=== PATIENT | female | born 1945 | race Caucasian/White ===

== ENCOUNTER → 2016-10-16 | Outpatient (CLI) | payer MEDICARE ==
[~2016-10-16] VITALS: Ht 167.6 cm; Wt 72.1 kg
[~2016-10-16] MED LIST: ALEV220T26 PO; CALCCAP12 PO; CALCTAB93; LIDOCAINE 2% INJ 100 MG/5 ML SDV (FOR ANES.) As Ordered ONE; NS 1,000 ML IV SCH; OMEP10CASR PO; PROPOFOL 200 MG/20 ML VIAL As Ordered ONE
--- NOTE | 2016-10-16 09:39 | ROOR ---
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 Procedure: Pre-Anesthesia Assessment: - The heart rate, respiratory rate, oxygen saturations, blood pressure, adequacy of pulmonary ventilation, and response to care were monitored throughout the procedure. The Endoscope was introduced through the mouth, and advanced to the second part of duodenum. The upper GI endoscopy was accomplished without difficulty. The patient tolerated the procedure well. Findings: A tattoo was seen in the second portion of the duodenum. A post-polypectomy scar was found at the tattoo site. There was no evidence of residual polyp tissue. This was biopsied with a cold forceps for histology. The exam was otherwise without abnormality. Impression: - A tattoo was seen in the duodenum. A post-polypectomy scar was found at the tattoo site. There was no evidence of residual polyp tissue. Biopsied. - The examination was otherwise normal. Recommendation: - Await pathology results. - Repeat upper endoscopy in 1 year for surveillance based on pathology results. Lamonte Cortez MD Lamonte CORTEZ MD 10/16/2016 9:39:03 AM This report has been signed electronically. Number of Addenda: 0 Note Initiated On: 10/16/2016 9:22 AM Estimated Blood Loss: Estimated blood loss: none.
[2016-10-16 09:55] VITALS: BP 168/84
== END | disposition home or self-care (01) ==
LOC: M OPP 07:10
PROVIDERS: ATTEND Internal Medicine Gastroenterology
DX: R12 Heartburn (principal); Z85.72 Personal history of non-Hodgkin lymphomas; Z79.1 Long term (current) use of non-steroidal anti-inflammatories (NSAID); Z79.899 Other long term (current) drug therapy

== ENCOUNTER → 2017-04-09 | Outpatient (CLI) | payer MEDICARE ==
[~2017-04-09] MED LIST changes: -CALCCAP12 PO; +CALCCAP2 PO; -LIDOCAINE 2% INJ 100 MG/5 ML SDV (FOR ANES.) As Ordered ONE; -NS 1,000 ML IV SCH; -PROPOFOL 200 MG/20 ML VIAL As Ordered ONE
--- NOTE | 2017-04-09 09:09 | REPMRS ---
Patient History The patient states she has not had a clinical breast exam in over a year. Patient is postmenopausal, has history of lymphoma at age 68, and had previous chemotherapy at age 68. No known family history of cancer. Digital Woman Screen Mammo: April 09, 2017 - Exam #: [id number] Bilateral CC and MLO view(s) were taken. Technologist: Sharon Stanley, Technologist Prior study comparison: March 23, 2014, digital woman screen mammo performed at [facility]. August 21, 2011, left breast digital mammo diagnostic unilateral, performed at [facility]. July 27, 2011, bilateral bilat screen digital mammo performed at [facility]. FINDINGS: The breast tissue is heterogeneously dense. This may lower the sensitivity of mammography. There is a stable nodular opacity laterally in the left breast unchanged from 2011. There is a moderate amount of heterogeneously dense fibroglandular tissue which is fairly symmetric. There is no interval development of dominant mass, architectural distortion, or clustered microcalcification typical of malignancy. There has been no change in the appearance of the mammogram from the prior studies. ASSESSMENT: BI-RADS/ACR category 2 mammogram. Benign finding(s). Recommendation Routine screening mammogram of both breasts in 1 year (for women over age 40). This mammogram was interpreted with the aid of an FDA-approved computer-aided dectection system. Electronically Signed By: Dwight Sharma MD 04/09/17 [id number]
== END ==
LOC: M WHC 08:05
PROVIDERS: ATTEND Internal Medicine Medical Oncology
DX: Z12.31 Encounter for screening mammogram for malignant neoplasm of breast (principal)

== ENCOUNTER 2017-08-20 15:21 | Emergency (ER) | payer MEDICARE ==
[~2017-08-20] VITALS: Ht 167.6 cm; Wt 70.9 kg
[2017-08-20 18:31] VITALS: BP 149/84
== END 2017-08-20 18:32 | disposition home or self-care (01) ==
LOC: M ED 15:21
DX: E86.0 Dehydration (principal); R10.84 Generalized abdominal pain; R19.7 Diarrhea, unspecified

== ENCOUNTER → 2017-10-21 | Outpatient (REF) | payer MEDICARE ==
[2017-10-23 14:14] LABS: HPV HYBRID CAPTURE II Negative (Negative)
== END ==
LOC: M SFHCWAGY 09:08
DX: Z12.72 Encounter for screening for malignant neoplasm of vagina (principal); R87.615 Unsatisfactory cytologic smear of cervix (principal)
CPT/HCPCS: G0123

== ENCOUNTER 2017-11-14 07:53 | Day surgery (SDC) | payer MEDICARE ==
[~2017-11-14 07:53] MED LIST changes: -ALEV220T26 PO; -CALCCAP2 PO; -CALCTAB93; +LIDOCAINE 2% MDV 20 ML VIAL As Ordered; -OMEP10CASR PO; +PROPOFOL 200 MG/20 ML VIAL As Ordered
[2017-11-14] MEDS ORDERED: NS 1,000 ML IV (08:00)
[2017-11-14] MEDS: NS 1,000 ML IV (08:00)
[2017-11-14] MEDS ORDERED: PROPOFOL 200 MG/20 ML VIAL As Ordered (10:32)
== END 2017-11-14 11:10 | disposition home or self-care (01) ==
LOC: M OPP 07:53
DX: K44.9 Diaphragmatic hernia without obstruction or gangrene (principal); R12 Heartburn; Z85.72 Personal history of non-Hodgkin lymphomas; Z85.01 Personal history of malignant neoplasm of esophagus
CPT/HCPCS: 43239

== ENCOUNTER → 2018-08-11 | Outpatient (CLI) | payer OTHER | LOC: M RAD 15:30 | DX: Z12.31 Encounter for screening mammogram for malignant neoplasm of breast (principal); R92.8 Other abnormal and inconclusive findings on diagnostic imaging of breast | CPT/HCPCS: 77067 ==

== ENCOUNTER → 2019-08-14 | Outpatient (CLI) | payer MEDICARE ==
[~2019-08-14] MED LIST changes: +ALEV220T26 PO; +CALCCAP2 PO; +CALCD50TA; +CALCTAB93; -LIDOCAINE 2% MDV 20 ML VIAL As Ordered; +OMEP10CASR PO; +OMEP20CA4 PO; -PROPOFOL 200 MG/20 ML VIAL As Ordered
--- NOTE | 2019-08-14 13:39 | REPMRS ---
Patient History No known family history of cancer. 3D TOMOSYNTHESIS WAS PERFORMED. [facility] lifetime [facility] for [facility] cancer is 3.3%. Digital Mammo Screening Bilat: August 14, 2019 - Exam #: [id number] Bilateral CC and MLO view(s) were taken. Technologist: Cecile Downey, Technologist Prior study comparison: August 11, 2018, bilateral digital mammo screening bilat performed at [facility]. April 09, 2017, digital woman screen mammo, performed at [facility]. FINDINGS: The breast tissue is heterogeneously dense. This may lower the sensitivity of mammography. There has been no change in the appearance of the mammogram from the prior studies. There is a moderate amount of residual fibroglandular tissue which is fairly symmetric. There is no interval development of dominant mass, areas of architectural distortion, or clustered microcalcification typical of malignancy. Assessment: BI-RADS/ACR category 1 mammogram. Negative Mammogram. Recommendation Routine screening mammogram in 1 year (for women over age 40). This mammogram was interpreted with the aid of an FDA-approved computer-aided dectection system. Electronically Signed By: Froylan Saldivar MD 08/14/19 [id number]
--- NOTE | 2019-08-14 20:17 | ECHO ---
DATE OF PROCEDURE: 08/14/2019 Date of : 1945 Age: 74 Gender: Female Height: 66 inches Weight: 156 pounds Body surface area: 1.79 meters squared Outpatient. REFERRING PHYSICIAN: Dr. Terence David INDICATION: Potentially cardiotoxic chemotherapy. MEASUREMENTS: 2D Measurements: RV: 2.8 cm LV: 5.4 cm Septum: 1.2 cm Posterior wall: 1.2 cm Aortic root: 3.0 cm LA: 4.2 cm LVEF: 50% Doppler Measurements: AV: 1.45 meters per second LVOT: 0.86 meters per second LVOT diameter: 2.0 cm MV-E: 68, A: 78, EA ratio: 0.9 Early mitral deceleration time: 222 milliseconds E prime medial: 7.4, A prime medial: 9.9, E prime lateral: 8.3. Average E/E prime ratio: 8.7 Pulmonary capillary wedge pressure: 12.6 mmHg PV: 0.75 meters per second RVSP: 29 mmHg IVC: 1.7 cm COMMENTS: Normal sinus rhythm with left bundle branch block. M-mode and two-dimensional echocardiography was performed with pulsed, continuous wave, color flow and tissue Doppler studies. Borderline concentric left ventricle hypertrophy with septal wall motion abnormality due to left bundle branch block and mild impairment of global resting systolic function. Mildly dilated left atrium with grade 1 left ventricular (LV) diastolic dysfunction and current estimated mean left atrial pressure upper limits of normal. Normal right heart chamber sizes and wall motion with normal estimated pulmonary arterial pressure. Normal inferior vena cava (IVC) size and collapse against an elevated central venous pressure. Subtle aortic valvular sclerosis without stenosis and only trace insufficiency. Normal aortic diameters. Slightly thickened mitral valvular apparatus with adequate leaflet excursion with posterior leaflet prolapse and moderate eccentrically directed insufficiency to the roof of the left atrium. Normal appearing tricuspid valve with very mild insufficiency. No apparent intracardiac mass or pericardial effusion.
== END ==
LOC: M CARPUL 10:02
PROVIDERS: ATTEND Internal Medicine Hematology
DX: Z12.31 Encounter for screening mammogram for malignant neoplasm of breast (principal); C82.90 Follicular lymphoma, unspecified, unspecified site; I44.7 Left bundle-branch block, unspecified; I51.7 Cardiomegaly

== ENCOUNTER → 2020-02-03 | Outpatient (CLI) | payer MEDICARE ==
[~2020-02-03] MED LIST changes: +OMEP1CAP73 PO; -OMEP20CA4 PO
[2020-02-03 16:24] LABS: BASO # 0.1 10^3/uL (0.0-0.2); BASO % 0.6 % (0.0-1.0); EOS # 0.2 10^3/uL (0.0-0.5); EOS % 2.2 % (0.0-3.0); HEMATOCRIT 40.3 % (36.0-47.0); HEMOGLOBIN 13.2 g/dl (12.0-15.5); LYMPH # 2.4 10^3/uL (1.5-5.0); LYMPH % 27.8 % (24.0-44.0); MEAN CORPUSCULAR HEMOGLOBIN 27.8 pg (27.0-33.0); MEAN CORPUSCULAR HGB CONC 32.8 g/dl (32.0-36.5); MONO # 0.6 10^3/uL (0.0-0.8); MONO % 7.4 % (0.0-5.0); NEUTROPHILS # 5.3 10^3/uL (1.5-8.5); NEUTROPHILS % 61.5 % (36.0-66.0); PLATELET COUNT, AUTOMATED 326 10^3/uL (150-450); RED BLOOD COUNT 4.74 10^6/uL (4.00-5.40); WHITE BLOOD COUNT 8.6 10^3/uL (4.0-10.0)
[2020-02-03 16:34] LABS: ALBUMIN 3.7 GM/DL (3.2-5.2); ALT/SGPT 20 U/L (12-78); BILIRUBIN,TOTAL 0.8 MG/DL (0.2-1.0); BLOOD UREA NITROGEN 21 MG/DL (7-18); CALCIUM LEVEL 9.4 MG/DL (8.8-10.2); CARBON DIOXIDE LEVEL 28 MEQ/L (21-32); CHLORIDE LEVEL 106 MEQ/L (98-107); CREATININE FOR GFR 0.64 MG/DL (0.55-1.30); GLOMERULAR FILTRATION RATE > 60.0 (>39); GLUCOSE, FASTING 109 MG/DL (70-100); POTASSIUM SERUM 4.1 MEQ/L (3.5-5.1); SODIUM LEVEL 141 MEQ/L (136-145); TOTAL PROTEIN 6.9 GM/DL (6.4-8.2)
== END ==
LOC: M LRY 13:22
PROVIDERS: ATTEND Internal Medicine Hematology
DX: C82.90 Follicular lymphoma, unspecified, unspecified site (principal)

== ENCOUNTER → 2020-08-11 | Outpatient (CLI) | payer MEDICARE ==
--- NOTE | 2020-08-11 14:03 | DEXAMM ---
INDICATION: HX FOLLICULAR LYMPHOMA. COMPARISON: None. TECHNIQUE: Bone density was measured using dual-energy x-ray absorptiometry (DEXA). FINDINGS: AP SPINE L1-L4 BMD 1.150 g/cm2 Young Adult T-Score -0.4 Age Matched Z-Score 1.4. LT FEMUR, TOTAL BMD 0.759 g/cm2 Young Adult T-Score -2.0 Age Matched Z-Score -0.3. LT NECK BMD 0.790 g/cm2 Young Adult T-Score -1.8 Age Matched Z-Score 0.1. RT FEMUR, TOTAL BMD 0.723 g/cm2 Young Adult T-Score -2.3 Age Matched Z-Score -0.6. RT NECK BMD 0.754 g/cm2 Young Adult T-Score for -2.0 Age Matched Z-Score -0.2. IMPRESSION: There is normal bone density of the spine. There is low bone density of the left hip. There is low bone density of the right hip. FOLLOW-UP: Recommendation for the next bone density exam: 2 years. <Electronically signed by Froylan Saldivar > 08/11/20 [id number]
== END ==
LOC: M WHC 11:19
PROVIDERS: ATTEND Specialist
DX: M85.851 Other specified disorders of bone density and structure, right thigh (principal); M85.852 Other specified disorders of bone density and structure, left thigh; Z85.72 Personal history of non-Hodgkin lymphomas

== ENCOUNTER → 2020-08-15 | Outpatient (CLI) | payer MEDICARE ==
--- NOTE | 2020-08-15 12:38 | REPMRS ---
Patient History The patient states she has not had a clinical breast exam in over a year. No known family history of cancer. 3D TOMOSYNTHESIS WAS PERFORMED. [facility]%. Volpara breast density c. Digital Woman Screen Mammo: August 15, 2020 - Exam #: [id number] Bilateral CC and MLO view(s) were taken. Technologist: Sharon Stanley, Technologist Prior study comparison: August 14, 2019, bilateral digital mammo screening bilat, performed at [facility]. August 11, 2018, bilateral digital mammo screening bilat, performed at [facility]. FINDINGS: The breast tissue is heterogeneously dense. This may lower the sensitivity of mammography. There has been no change in the appearance of the mammogram from the prior studies. There is a moderate amount of residual fibroglandular tissue which is fairly symmetric. There is no interval development of dominant mass, areas of architectural distortion, or clustered microcalcification typical of malignancy. Assessment: BI-RADS/ACR category 1 mammogram. Negative Mammogram. Recommendation Routine screening mammogram in 1 year (for women over age 40). This mammogram was interpreted with the aid of an FDA-approved computer-aided dectection system. Electronically Signed By: Froylan Saldivar MD 08/15/20 [id number]
== END ==
LOC: M WHC 11:23
PROVIDERS: ATTEND Internal Medicine Hematology
DX: Z12.31 Encounter for screening mammogram for malignant neoplasm of breast (principal)

== ENCOUNTER 2021-09-26 12:17 | Inpatient (IN) | payer OTHER ==
[~2021-09-26] VITALS: Ht 167.6 cm; Wt 69.2 kg
[2021-09-26] MEDS ORDERED: PRIL20TA2 PO (12:30)
[2021-09-26 13:54] LABS: BASO # 0.1 10^3/uL (0.0-0.2); BASO % 0.5 % (0.0-1.0); EOS # 0.1 10^3/uL (0.0-0.5); EOS % 0.8 % (0.0-3.0); HEMATOCRIT 45.8 % (36.0-47.0); HEMOGLOBIN 14.7 g/dl (12.0-15.5); LYMPH # 1.7 10^3/uL (1.5-5.0); MEAN CORPUSCULAR HEMOGLOBIN 27.4 pg (27.0-33.0); MEAN CORPUSCULAR HGB CONC 32.1 g/dl (32.0-36.5); MEAN CORPUSCULAR VOLUME 85.4 fl (80.0-96.0); MONO # 0.6 10^3/uL (0.0-0.8); MONO % 5.3 % (2.0-8.0); NEUTROPHILS # 9.3 10^3/uL (1.5-8.5); NEUTROPHILS % 78.7 % (36.0-66.0); PLATELET COUNT, AUTOMATED 271 10^3/uL (150-450); RED BLOOD COUNT 5.36 10^6/uL (4.00-5.40); WHITE BLOOD COUNT 11.8 10^3/uL (4.0-10.0)
[2021-09-26 15:08] LABS: RSV AMPLIFICATION NEGATIVE (NEGATIVE)
[2021-09-26 16:06] LABS: BLOOD UREA NITROGEN 22 MG/DL (7-18); CALCIUM LEVEL 9.3 MG/DL (8.8-10.2); CARBON DIOXIDE LEVEL 24 MEQ/L (21-32); CHLORIDE LEVEL 108 MEQ/L (98-107); CREATININE FOR GFR 0.64 MG/DL (0.55-1.30); GLOMERULAR FILTRATION RATE > 60.0 (>39); GLUCOSE, FASTING 139 MG/DL (70-100); MAGNESIUM LEVEL 2.1 MG/DL (1.8-2.4); POTASSIUM SERUM 4.3 MEQ/L (3.5-5.1); SODIUM LEVEL 139 MEQ/L (136-145)
[2021-09-26] MEDS ORDERED: ISOVUE-370 76% 100ML VIAL As Ordered ONE (16:27)
[2021-09-26] MEDS ORDERED: NS 1,000 ML IV SCH (17:25)
[2021-09-26] MEDS ORDERED: PANTOPRAZOLE 40MG VIAL (C9113 PER 1) IV SCH (18:00)
[2021-09-26] MEDS ORDERED: HOME MED LIST COMPLETE! XX SCH (18:30)
[2021-09-26 19:13] LABS: INR 1.02; PROTHROMBIN TIME 13.8 SECONDS (12.7-14.5)
[2021-09-26 19:14] LABS: PARTIAL THROMBOPLASTIN TIME 28.4 SECONDS (25.9-37.0)
[2021-09-26 19:30] LABS: ALBUMIN 3.7 GM/DL (3.2-5.2); ALT/SGPT 26 U/L (12-78); BILIRUBIN,TOTAL 1.4 MG/DL (0.2-1.0); BLOOD UREA NITROGEN 20 MG/DL (7-18); CALCIUM LEVEL 9.4 MG/DL (8.8-10.2); CARBON DIOXIDE LEVEL 23 MEQ/L (21-32); CHLORIDE LEVEL 107 MEQ/L (98-107); CREATININE FOR GFR 0.64 MG/DL (0.55-1.30); GLOMERULAR FILTRATION RATE > 60.0 (>39); GLUCOSE, FASTING 122 MG/DL (70-100); PHOSPHORUS LEVEL 2.7 MG/DL (2.5-4.9); POTASSIUM SERUM 4.3 MEQ/L (3.5-5.1); SODIUM LEVEL 139 MEQ/L (136-145); TOTAL PROTEIN 6.5 GM/DL (6.4-8.2)
[2021-09-26 22:11] VITALS: BP 154/68
[2021-09-26] MEDS ORDERED: MAGNESIUM SULFATE 1GM/100ML D5W BAG (10MG/ML) As Ordered ONE (23:08)
[2021-09-26] MEDS ORDERED: AMIODARONE HCL 150 MG in IV 1 EA IV STA (23:09)
[2021-09-26] MEDS ORDERED: MAG SULF 1GM/100ML (MAG RUN) 1 GM in IV 1 EA IV ONE (23:10)
[2021-09-26] MEDS ORDERED: NS 1,000 ML IV ONE (23:20)
[2021-09-26] MEDS ORDERED: LIDOCAINE 1% MDV 20ML VIAL As Ordered ONE (23:33)
[2021-09-26 23:51] VITALS: BP 98/50
[2021-09-26 23:54] VITALS: BP 107/53
[2021-09-26 23:57] VITALS: BP 105/53
[2021-09-27] VITALS (9 sets, daily range): BP systolic 95–121; BP diastolic 50–59
[2021-09-27] MEDS ORDERED: ceFAZolin SOD 2 GM in IV 1 EA IV ONE ×2 (00:45→06:00)
[2021-09-27] MEDS ORDERED: LR 1,000 ML IV SCH (06:00)
== END 2021-09-27 01:16 | disposition short-term general hospital (02) | DRG 312 ==
LOC: EDBD 12:17 → M ED 12:17 → M ED INP 17:22 → M PCU 22:00
PROVIDERS: ADMIT Internal Medicine; ATTEND Internal Medicine
DX: R55 Syncope and collapse (principal); I46.9 Cardiac arrest, cause unspecified; I47.2 Ventricular tachycardia; C82.90 Follicular lymphoma, unspecified, unspecified site; I44.7 Left bundle-branch block, unspecified; I44.1 Atrioventricular block, second degree; Z90.79 Acquired absence of other genital organ(s); T68.XXXA Hypothermia, initial encounter; W01.0XXA Fall on same level from slipping, tripping and stumbling without subsequent striking against object, initial encounter; Y92.9 Unspecified place or not applicable; Z20.822 Contact with and (suspected) exposure to COVID-19; Z79.899 Other long term (current) drug therapy

== ENCOUNTER → 2022-02-02 | Outpatient (REF) | payer OTHER ==
[~2022-02-02] MED LIST changes: +ECOT81TA5 PO; +ONETAB20 PO; +PRIL20TA2 PO
[2022-02-02 11:20] LABS: MEAN CORPUSCULAR HEMOGLOBIN 27.1 pg (27.0-33.0); MEAN CORPUSCULAR HGB CONC 32.5 g/dl (32.0-36.5); MEAN CORPUSCULAR VOLUME 83.5 fl (80.0-96.0); PLATELET COUNT, AUTOMATED 365 10^3/uL (150-450); RED BLOOD COUNT 4.79 10^6/uL (4.00-5.40); WHITE BLOOD COUNT 7.5 10^3/uL (4.0-10.0)
[2022-02-02 11:34] LABS: ALBUMIN 3.7 GM/DL (3.2-5.2); ALT/SGPT 16 U/L (12-78); BILIRUBIN,TOTAL 0.8 MG/DL (0.2-1.0); BLOOD UREA NITROGEN 19 MG/DL (7-18); CALCIUM LEVEL 9.4 MG/DL (8.8-10.2); CARBON DIOXIDE LEVEL 30 MEQ/L (21-32); CHLORIDE LEVEL 108 MEQ/L (98-107); CREATININE FOR GFR 0.61 MG/DL (0.55-1.30); FREE T4 1.01 NG/DL (0.76-1.46); GLOMERULAR FILTRATION RATE > 60.0 (>39); GLUCOSE, FASTING 96 MG/DL (70-100); MAGNESIUM LEVEL 2.2 MG/DL (1.8-2.4); POTASSIUM SERUM 4.3 MEQ/L (3.5-5.1); SODIUM LEVEL 139 MEQ/L (136-145); TOTAL PROTEIN 6.7 GM/DL (6.4-8.2)
== END ==
LOC: M LAB REF 11:04
PROVIDERS: ATTEND Physician Assistant
DX: R00.2 Palpitations (principal)

== ENCOUNTER → 2023-10-08 | Outpatient (CLI) | payer OTHER ==
[~2023-10-08] MED LIST changes: +CALC-190 PO; +GASTROGRAFIN SOLUTION 30ML As Ordered ONE; +ISOVUE-370 76% 100ML VIAL As Ordered ONE
== END ==
LOC: M RAD 07:47
PROVIDERS: ATTEND Specialist
DX: C82.90 Follicular lymphoma, unspecified, unspecified site (principal); K76.89 Other specified diseases of liver; K86.89 Other specified diseases of pancreas; I70.0 Atherosclerosis of aorta; M41.86 Other forms of scoliosis, lumbar region
CPT/HCPCS: 71260; 74177; Q9963; Q9967

== ENCOUNTER 2024-03-17 11:13 | Day surgery (SDC) | payer OTHER ==
[~2024-03-17] VITALS: Ht 167.6 cm; Wt 68.2 kg
[~2024-03-17 11:13] MED LIST changes: +B-12100011 SL; -GASTROGRAFIN SOLUTION 30ML As Ordered ONE; -ISOVUE-370 76% 100ML VIAL As Ordered ONE; +PANT20TA6 PO
[2024-03-17] MEDS: NS 1,000 ML IV ONE (11:30)
[2024-03-17] MEDS ORDERED: propofoL 200 MG/20 ML VIAL As Ordered ONE (13:17)
[2024-03-17] MEDS ORDERED: LIDOCAINE 2% 100MG/5ML SDV (FOR ANES.) As Ordered ONE (13:17)
[2024-03-17 13:55] VITALS: BP 136/73; TEMP 96.7; O2SAT 95
== END 2024-03-17 13:55 | disposition home or self-care (01) ==
LOC: M OPP 11:13
PROVIDERS: ATTEND Internal Medicine Gastroenterology
DX: K44.9 Diaphragmatic hernia without obstruction or gangrene (principal); F45.8 Other somatoform disorders; R12 Heartburn; Z95.5 Presence of coronary angioplasty implant and graft; Z79.899 Other long term (current) drug therapy

== ENCOUNTER → 2024-08-04 | Outpatient (CLI) | payer OTHER | LOC: M PLAIMG 07:39 | PROVIDERS: ATTEND Registered Nurse | DX: I34.0 Nonrheumatic mitral (valve) insufficiency (principal); I27.20 Pulmonary hypertension, unspecified ==

== ENCOUNTER → 2024-12-31 | Outpatient (CLI) | payer OTHER ==
[2024-12-31 11:10] LABS: ALBUMIN 3.6 G/DL (3.2-5.2); ALKALINE PHOSPHATASE 70 U/L (35-104); ALT/SGPT 14 U/L (7.0-40); AST/SGOT 13 U/L (<34); BILIRUBIN,TOTAL 0.9 MG/DL (0.3-1.2); BLOOD UREA NITROGEN 21 MG/DL (9-23); CARBON DIOXIDE LEVEL 30 MMOL/L (20-31); CHLORIDE LEVEL 104 MMOL/L (98-107); GLOMERULAR FILTRATION RATE > 90.0 (>39); GLUCOSE, FASTING 98 MG/DL (74-106); MAGNESIUM LEVEL 2.1 MG/DL (1.8-2.4); POTASSIUM SERUM 4.7 MMOL/L (3.5-5.1); SODIUM LEVEL 140 MMOL/L (136-145); TOTAL PROTEIN 6.7 G/DL (5.7-8.2)
[2024-12-31 11:13] LABS: FREE T4 1.17 NG/DL (0.89-1.76); THYROID STIMULATING HORMONE 1.965 uIU/ML (0.55-4.78)
== END ==
LOC: M LAB 09:49
PROVIDERS: ATTEND Registered Nurse
DX: I49.3 Ventricular premature depolarization (principal); Z79.899 Other long term (current) drug therapy

== ENCOUNTER → 2025-01-02 | Outpatient (CLI) | payer OTHER | LOC: M EKG 09:22 | PROVIDERS: ATTEND Registered Nurse | DX: I49.3 Ventricular premature depolarization (principal); Z53.9 Procedure and treatment not carried out, unspecified reason ==

== ENCOUNTER → 2025-07-02 | Outpatient (CLI) | payer OTHER ==
[2025-07-02 12:11] LABS: CHOLESTEROL LEVEL 192.0 MG/DL (<200); CHOLESTEROL RISK RATIO 2.08 (<5); LDL CHOLESTEROL 86.0 MG/DL (<100); NON-HDL-C 99.8 MG/DL; TRIGLYCERIDES LEVEL 69.0 MG/DL (<150)
== END ==
LOC: M LAB 09:56
PROVIDERS: ATTEND Nurse Practitioner Family
DX: R94.31 Abnormal electrocardiogram [ECG] [EKG] (principal); Z79.82 Long term (current) use of aspirin; Z79.899 Other long term (current) drug therapy